=== PATIENT | female | born 1960 | race African-American/Black ===

== ENCOUNTER 2019-10-25 13:35 | Emergency (ER) | payer OTHER ==
[~2019-10-25] VITALS: Ht 162.6 cm; Wt 72.6 kg
[~2019-10-25 13:35] MED LIST: ASPIR 8181 MG PO; ATENOLOL25 MG PO; GLUMETZA500 MG PO; LAC PO; LEVAQUIN250 MG PO; LEVOTHYROXIN0.112 M1 PO; SIMVASTATIN10 M1 PO
[2019-10-25 13:49] VITALS: Ht 162.6 cm; Wt 72.6 kg
[2019-10-25 15:02] VITALS: BP 128/87
== END 2019-10-25 15:03 | disposition home or self-care (01) ==
LOC: ED 13:35
DX: F45.8 Other somatoform disorders (principal); I16.0 Hypertensive urgency; E11.9 Type 2 diabetes mellitus without complications; Z88.5 Allergy status to narcotic agent; Z88.1 Allergy status to other antibiotic agents; Z88.8 Allergy status to other drugs, medicaments and biological substances